=== PATIENT | female | born 1970 | race Caucasian/White ===

== ENCOUNTER 2023-03-07 08:25 | Emergency (ER) | payer OTHER, SELFPAY ==
[2023-03-07 08:36] VITALS: BP 148/65; PULSE 82; RESP 20; TEMP 37.5; O2SAT 95
--- NOTE | 2023-03-07 08:57 | ED.GENADULT ---
HPI - General Adult General Chief complaint: Upper Respiratory Infection Stated complaint: Cough, Trouble Breathing Source: patient, RN notes reviewed and old records reviewed Mode of arrival: ambulatory Limitations: no limitations History of Present Illness HPI narrative: 52-year-old female presents to [facility] with complaint cough and congestion with shortness of breath for approximately over 1 week. Patient taking [id number] medications with no relief. Patient states woke up in the middle night with shortness of breath. MD complaint: Cough Onset (ago): week(s) (1) Related Data Home Medications Medication Instructions Recorded Confirmed cholecalciferol (vitamin D3) 10 20 mcg PO DAILY 01/27/23 01/27/23 mcg (400 unit) tablet lisinopril 20 mg tablet 20 mg PO DAILY 01/27/23 01/27/23 levothyroxine 88 mcg tablet mcg 03/07/23 03/07/23 (Unithroid) Allergies Allergy/AdvReac Type Severity Reaction Status Date / Time No Known Allergies Allergy Verified 01/27/23 13:45 Review of Systems Constitutional: Constitutional: Reports no additional constitutional complaints, Reports body ache(s), Denies chills, Denies fatigue, Reports fever(s) and Denies headache(s) Eyes: Eyes: Reports no additional eye complaints and Denies blurry vision ENT: Reports system reviewed and no additional complaints, except as documented, Denies vertigo, Denies dizziness, Denies ear discharge, Denies otalgia, Denies facial pain, Denies headache(s), Reports nasal congestion, Denies nasal discharge, Denies sinus pain, Denies sinus pressure and Denies sore throat Cardiovascular: Cardiovascular: Reports no additional cardiovascular complaints, Denies chest pain, Denies chest pain at rest, Denies rapid heart rate and Denies dyspnea Respiratory: Respiratory: Reports as per HPI, Reports chest congestion, Reports cough, Reports pain on inspiration, Reports pain with cough and Reports dyspnea Gastrointestinal: Gastrointestinal: Denies abdominal pain, Denies diarrhea, Denies nausea and Denies vomiting Integumentary/Breasts: Skin/Breast: Denies rash Neurologic: Reports system reviewed and no additional complaints, except as documented, Denies vertigo, Denies dizziness and Denies headache(s) Endocrine: Endocrine: Denies fatigue PMFSH Past Medical History Medical History Domenic's disease Hyperparathyroidism Surgical History Surgical History H/O partial thyroidectomy Social History Social History Smoking status: Never smoker Alcohol intake: never Substance use: never Comments At the time of my signature, I reviewed and agree with the nursing past medical, surgical, social, and family history. There is no relevant family history pertinent to the patient complaint. Exam Const: General: cooperative, healthy appearing, no acute distress and well nourished Nutritional Appearance: well nourished Orientation/consciousness: patient oriented x3 Limitations: no limitations HENMT: Head: normal to inspection and normocephalic Ears: external ears normal, TM's normal bilaterally, mastoids normal and Abnormal EAC present Face/Nose/Sinus: normal facial exam Face and sinus: normal facial exam Mouth: Yes Normal oral and palatal mucosa present, Yes oropharynx normal and Yes moist mucous membranes Throat: tonsils normal, uvula midline and no uvular edema Eyes: General: appearance normal, both eyes and all related structures Sclera: sclerae normal Pupils: Equal, round and reactive pupils present Resp: Effort & Inspection: normal respiratory effort, able to speak in complete sentences, no audible wheezes, no cough, no respiratory distress and no retractions Auscultation: clear to auscultation bilaterally, no crackles, no rales, no rhonchi and no wheezes Cardio: Rate: regu
== END 2023-03-07 09:03 | disposition home or self-care (01) ==
PROVIDERS: Emergency Provider Registered Nurse; PCP Nurse Practitioner Family
DX: J20.9 Acute bronchitis, unspecified (principal); Z79.899 Other long term (current) drug therapy
CPT/HCPCS: 99213; G0463

== ENCOUNTER 2024-05-16 08:42 | Outpatient (CLI) | payer OTHER, SELFPAY ==
--- NOTE | 2024-05-16 09:07 | ECHO_ITS ---
Patient Info Name: Safia Rush Age: 53 years : 1970 Gender: Female Ht: 65 in Wt: 190 lbs BSA: 2.02 m2 HR: 86 bpm BP: 139 / 78 mmHg Technical Quality: Fair Exam Date: 05/16/2024 9:17 AM Exam Location: Echo Lab Patient Status: Outpatient Admit Date: 05/16/2024 Staff Ordering Physician: Blaze Farley DO Senior Occupational Therapist: Onofre Gonzalez RDCS Attending Provider: Blaze Farley DO Referring Physician: Miguelito DUARTE; Exam Type: CA echo doppler color flow Study Info Indications - CARDIAC MURMUR Complete two-dimensional, color flow and Doppler transthoracic echocardiogram is performed. Summary 1. Complete two-dimensional, color flow and Doppler transthoracic echocardiogram is performed. 2. Left ventricular chamber dimension is normal. 3. Left ventricular systolic function is normal, estimated at 65-70%. 4. The left ventricular diastolic function is grade I diastolic dysfunction. 5. There is mild concentric increased left ventricular wall thickness. 6. E/e' 5 is not elevated. 7. The aortic valve is not well visualized. Cannot determine number of aortic valve leaflets. 8. There is mild aortic valve stenosis based on a peak velocity of 229 cm/s, mean gradient of 10 mmHg, and aortic valve area of 1.8 cm2. Left Ventricle E/e' 5 is not elevated. Left ventricular chamber dimension is normal. Left ventricular systolic function is normal, estimated at 65-70%. There is mild concentric increased left ventricular wall thickness. The left ventricular diastolic function is grade I diastolic dysfunction. Right Ventricle Right ventricular systolic function is normal and with normal TAPSE 1.9 cm. Right ventricular chamber dimension is normal. Left Atria Left atrial chamber dimension is normal. Right Atria Right atrial chamber dimension is normal. Aortic Valve The aortic valve is not well visualized. Cannot determine number of aortic valve leaflets. There is mild aortic valve stenosis based on a peak velocity of 229 cm/s, mean gradient of 10 mmHg, and aortic valve area of 1.8 cm2. There is no aortic valve regurgitation. Pulmonic Valve There is no pulmonic regurgitation. Mitral Valve There is no mitral valve stenosis. There is no mitral valve regurgitation. Tricuspid Valve There is no tricuspid valve regurgitation. Pericardium/Pleural There is no pericardial effusion. Inferior Vena Cava Normal inferior vena cava with >50% collapse upon inspiration consistent with normal right atrial pressure, 5 mmHg. Aorta The aortic root size at the sinus of Valsalva is normal. Left Ventricular Outflow Tract Name Value Normal LVOT 2D LVOT Diameter 2.1 cm LVOT Doppler LVOT Peak Gradient 5 mmHg LVOT Mean Gradient 3 mmHg LVOT VTI 25 cm LVOT VTI/AV VTI Ratio 0.5 LVOT Stroke Volume 86 ml LVOT CO 17.5 l/min LVOT CI 8.7 l/min/m2 Pulmonic Valve Name Value Normal RVOT Doppler RVOT Peak Gradient 4 mmHg PV Doppler PV Peak Gradient 5 mmHg Mitral Valve Name Value Normal MV Doppler MV Decel [place] 428 cm/s2 MV PHT 35 ms MV Area (PHT) 6.2 cm2 4.0-5.0 MV Diastolic Function MV E Peak Velocity 52 cm/s MV A Peak Velocity 87 cm/s MV E/A 0.6 MV Decel Time 122 ms MV Annular TDI MV E/e' (Septal) 5.8 <=8.0 MV E/e' (Lateral) 4.7 <=8.0 MV E/e' (Average) 5.3 Tricuspid Valve Name Value Normal Estimated PAP/RSVP RA Pressure 5 mmHg <=5 Aorta Name Value Normal Ascending Aorta Ao Root Diameter (MM) 2.4 cm Ao Root Diam Index (MM) 1.2 cm/m2 Aortic Valve Name Value Normal AV Doppler AV Peak Velocity 229 cm/s AV Peak Gradient 18 mmHg AV Mean Gradient 10 mmHg AV VTI 48 cm AV Area (Cont Eq VTI) 1.8 cm2 >=3.0 AV Area (Cont Eq Arthur) 1.7 cm2 AV Regurgitation 2D LVOT Area 3.4 cm2 Ventricles Name Value Normal LV Dimensions 2D/MM IVS Diastolic Thickness (2D) 1.4 cm 0.6-1.0 LVID Diastole (2D) 3.8 cm 3.8-5.2 LVIW Diastolic Thickness (2D) 1.4 cm 0.6-0.9 LVID Systole (2D) 2.2 cm 2.2-3.5 LVOT Diameter 2.1 cm LV Mass (2D Cubed) 190.20 g 67.00-162.00 LV Mass Index (2D Cubed) 94 g/m2 43-95 Relative Wall Thickness (2D) 0.75 LV Fractional Shortening/Ejection Fraction 2D/MM LV Fractional Shortening (2D) 41 % 27-45 LV EF (2D Teicholz) 73 % 54-74 LV Diastolic Volume (4C MOD) 67 ml LV EF (4C MOD) 65 % LV Diastolic Volume (2C MOD) 62 ml LV EF (2C MOD) 75 % LV Diastolic Volume (BP MOD) 67 ml 46-106 LV Diastolic Volume Index (BP MOD) 33 ml/m2 29-61 LV Systolic Volume (BP MOD) 19 ml 14-42 LV Systolic Volume Index (BP MOD) 10 ml/m2 8-24 LV EF (BP MOD) 71 % 54-74 LV Diastolic Length (4C) 7.1 cm LV Systolic Length (4C) 5.4 cm LV Stroke Volume (4C MOD) 44 ml Atria Name Value Normal LA Dimensions LA Dimension (MM) 3.7 cm 2.7-3.8 LA Volume (4C A-L) 33 ml LA Volume (BP A-L) 36 ml RA Dimensions RA Area (4C) 10.6 cm2 <=18.0 Report Signatures
--- OUTSIDE RECORDS SUMMARY | 2024-05-16 09:08 | XMS_ITS | Clinical Summary ---
Author Organization [facility] Address [address] [address] Phone Care Team Providers Care Specimen Boss Name Role Phone Provider, None Primary Care Provider Unavailabl e Allergies No known active allergies Medications SYNTHROID 112 MCG Tablet TAKE 1 TABLET BY MOUTH EVERY DAY 90 Tab 3 8 Active Additional Information Patient not taking.Reported on 07/10/2018 levothyroxine (SYNTHROID) 112 MCG Tablet TAKE 1 TABLET BY MOUTH DAILY 90 Tab 3 0 Active Family History Medical History Relation Name Comments Heart Attack Father Diabetes Mother Relation Name Status Comments Brother Alive Father Mother Sister Alive Social History Tobacco Use Types Packs/Day Years Used Date Smoking Tobacco: Never Smokeless Tobacco: Never Alcohol Use Standard Drinks/Week Comments No 0 (1 standard drink = 0.6 oz pur e alcohol) Comments No Sex and Gender Information Value Date Recorded Sex Assigned at Not on file Legal Sex Female 10:36 PM CDT Gender Identity Not on file Sexual Orientation Not on file Last Filed Vital Signs Vital Sign Reading Time Taken Comments Blood Pressure 162/98 07/10/2018 1:32 PM CDT Pulse 88 07/10/2018 1:32 PM CDT Temperature - - Respiratory Rate 22 07/10/2018 1:32 PM CDT Oxygen Saturation 98% 07/10/2018 1:32 PM CDT Inhaled Oxygen Concentration - - Weight 81.2 kg (179 lb) 07/10/2018 1:32 PM CDT Height 165.1 cm (5' 5 ) 07/10/2018 1:32 PM CDT Body Mass Index 29.79 07/10/2018 1:32 PM CDT Plan of Treatment Health Maintenance Due Date Last Done Comments Hepatitis C Virus (HCV) Screening 1970 Hepatitis B Immunization (1 of 3 - 19+ 3-dose series) 1988 Pap Smear 1990 Cervical Cancer Screening (CCS) 12/29/1999 HPV/Cotest 12/29/1999 Colonoscopy 2014 Colorectal Cancer Screening 2014 Cologuard 12/29/2019 Immunochemical Fecal Occult Blood 12/29/2019 Mammogram 12/29/2019 Pneumococcal Immunization (5 0+ years) (1 of 1 - PCV) 12/29/2019 Zoster Immunization (1 of 2) 12/29/2019 Influenza Immunization (#1) 2023 SARS-COV-2 Immunization (2 - season) 2023 06/26/2020 Respiratory Syncytial Virus (RSV) Immunization (Adult) (1 - 1-dose 75+ series) 2044 DTaP/Tdap/Td Immunization Discontinued 11/20/2019 TdaP Immunization Completed 11/20/2019 Meningococcal Immunization (ACWY) Aged Out No longer eligible based on patient's age to complete this topic Pneumococcal Immunization Combined Aged Out No longer eligible based on patient's age to complete this topic Rotavirus Immunization Aged Out No lo nger eligible based on patient's age to complete this topic Care Teams Specimen Boss Relationship Specialty Start Date End Date Provider, None [place] PCP - General 02/24/15
--- OUTSIDE RECORDS SUMMARY | 2024-05-16 09:08 | XMS_ITS | Encounter Summary ---
Author Organization [facility] Address [address] [place] [address] Phone Care Team Providers Care Manager Product Marketing Name Role Phone Provider, None Primary Care Provider Unavailabl e Reason for Visit * Reason Comments Medication Refill Encounter Details Date Type Department Care Team (Late st Contact Info) Description 07/20/2019 Refill [facility] - Ear, Nose & Throat - [place] [address] [phone] Mike Castillo, DO Medication Refill Social History Tobacco Use Types Packs/Day Years Used Date Smoking Tobacco: Never Smokeless Tobacco: Never Alcohol Use Standard Drinks/Week Comments No 0 (1 standard drink = 0.6 oz pur e alcohol) Comments No Sex and Gender Information Value Date Recorded Sex Assigned at Not on file Legal Sex Female 10:36 PM CDT Gender Identity Not on file Sexual Orientation Not on file documented as of this encounter Plan of Treatment Not on file documented as of this encounter Visit Diagnoses Not on filedocumented in this encounter Care Teams Manager Product Marketing Relationship Specialty Start Date End Date Provider, None [place] PCP - General 02/24/15 documented as of this encounter
--- OUTSIDE RECORDS SUMMARY | 2024-05-16 09:08 | XMS_ITS | CONTINUITY OF CARE DOCUMENT ---
Author Name ata berumen Address Unknown Organization [facility] Office Address [address] [place] [address] Phone [phone] Care Team Providers Care Vacuum Cleaner Operator Name Role Phone Chata BISWAS, Noah Unavailable Margot Ordonez MD Unavailable [phone] Margot Ordonez MD Unavailable INSURANCE PROVIDERS Payer name Policy type / Coverage type [employer] red constitution party ID [facility] [id number] Other [id number]
== END 2024-05-16 08:43 | disposition home or self-care (01) ==
PROVIDERS: PCP Nurse Practitioner Family; Visit Provider Internal Medicine Cardiovascular Disease
DX: R01.1 Cardiac murmur, unspecified (principal); I51.89 Other ill-defined heart diseases; I35.0 Nonrheumatic aortic (valve) stenosis
CPT/HCPCS: 93306

== ENCOUNTER 2025-01-07 14:19 | Outpatient (CLI) | payer BC, SELFPAY ==
--- NOTE | ~2025-01-07 | DEXA_ITS ---
Bone Density Report Name: ALLEN ASHTON Age: 54 Sex: Female Ethnicity: White Date of : 1970 Indication: postmenopausal; screening for osteoporosis; Referring Provider: Yaneli Keita Study: Bone densitometry was performed. Exam Date: January 07, 2025 Accession number: [id number] Bone Density: Region BMD T-score Z-score Classification AP Spine(L1-L4) 0.929 -1.1 0.0 Osteopenia Femoral Neck (Left) 0.690 -1.4 -0.4 Osteopenia Total Hip (Left) 0.832 -0.9 -0.2 Normal Femoral Neck (Right) 0.676 -1.6 -0.5 Osteopenia Total Hip (Right) 0.776 -1.4 -0.7 Osteopenia Total Hip Mean 0.804 -1.2 -0.5 Osteopenia World Health Organization criteria for BMD impression classify patients as: Normal (T-score at or above -1.0), Osteopenia (T-score between -1.0 and -2.5), or Osteoporosis (T-score at or below -2.5). 10-year Fracture Risk(1): Major Osteoporotic Fracture 6.3% Hip Fracture 0.5% Reported Risk Factors: [place] (), Neck BMD=0.676, BMI=32.0 (1) FRAX(R) Version 3.08. Fracture probability calculated for an untreated patient. Fracture probability may be lower if the patient has received treatment. Clinical Information Provided by Patient: Has used the following medications: Vitamin D Patient maximum height was 65 Menopause Age: 44 No regular weight bearing exercise Drinks caffeinated beverages Onset of menses at age 12 Number of children 0 Impression: The patient has low bone mass, based on the Right Femoral Neck T-score. The patient has an estimated ten-year risk of hip fracture of 0.5% and an estimated ten-year risk of major fracture of 6.3%, based on the WHO FRAX algorithm. Discussion: BONE DENSITY IS LOW AT ONE OR MORE SKELETAL SITES. This patient's lowest T-score is low at one or more skeletal sites. It meets the World Health Organization's (WHO) criteria for ?low bone mass? (T-score between -1.0 and -2.5). The patient's 10-year risk of fracture as calculated by FRAX is less than the threshold where pharmacological therapy is recommended by the National Osteoporosis Foundation (NOF). However, all treatment decisions require clinical judgment and consideration of individual patient factors, including patient preferences, comorbidities, previous drug use, risk factors not captured in the FRAX model (e.g., frailty, falls, vitamin D deficiency, increased bone turnover, interval significant decline in bone density) and possible under or overestimation of fracture risk by FRAX. The patient should follow a healthful lifestyle (good nutrition with adequate calcium and vitamin D, and appropriate weight-bearing exercise). Follow-Up: Consider repeating this study in 2 to 3 years to reassess this patient's status, or sooner if there is some new clinical indication. Reported by: CHEVY on 01/07/2025 2:39:00 PM. Reviewed, dictated and finalized at location A.
== END 2025-01-07 14:20 | disposition home or self-care (01) ==
PROVIDERS: PCP Internal Medicine Endocrinology, Diabetes & Metabolism; Visit Provider Internal Medicine Endocrinology, Diabetes & Metabolism
DX: Z78.0 Asymptomatic menopausal state (principal); M85.88 Other specified disorders of bone density and structure, other site; M85.852 Other specified disorders of bone density and structure, left thigh; M85.851 Other specified disorders of bone density and structure, right thigh
CPT/HCPCS: 77080